=== PATIENT | female | born 1990 | race American Indian/Alaskan Native ===

== ENCOUNTER 2017-10-20 22:56 | Emergency (ER) | payer MEDICAID ==
[2017-10-20 22:56] VITALS: BMI 27.9
--- NOTE | 2017-10-20 23:29 | ED PDOC ---
Arrival/HPI - General Historian: Patient - History of Present Illness Time/Duration: 1 hour Symptom Onset: Sudden Symptom Course: Unchanged Activities at Onset: Rest, Light Context: Home <Stevie Dawkins - Last Filed: 10/21/17 02:02> <Yonny Jimenez - Last Filed: 10/21/17 06:49> - General Chief Complaint: Psychiatric Evaluation Time Seen by Provider: 10/20/17 23:09 - History of Present Illness Narrative History of Present Illness (Text): 10/20/17 23:21 A 27 year old female, whose past medical history includes seizures, is brought into the Emergency department via EMS s/p an argument with her parents at home about 1 hour prior to arrival. She notes that she was throwing glass on the ground at home when arguing. She notes that she did not plan to harm anyone with her actions. Her finger stick was 78 upon arrival to the emergency department. Patient denies drug or alcohol use. She denies fevers, chills, headache, dizziness, chest pain, shortness of breath, dyspnea on exertion, cough , abdominal pain, nausea, vomiting, diarrhea, back pain, neck pain, urinary/ bowel changes, suicidal/ homicidal ideation, auditory/visual hallucination, or any other somatic complaint. (Stevie Dawkins) Past Medical History - Provider Review Nursing Documentation Reviewed: Yes - Infectious Disease Hx of Infectious Diseases: None - Tetanus Immunization Tetanus Immunization: Unknown - Past Medical History Past Medical History: Unable to Obtain - Neurological Hx Neurological Disorder: Yes Hx Seizures: Yes - Psychiatric Hx Depression: No Hx Emotional Abuse: No Hx Physical Abuse: No Hx Substance Use: No - Past Surgical History Past Surgical History: Unable to Obtain - Suicidal Assessment Feels Threatened In Home Enviroment: No <Stevie Dawkins - Last Filed: 10/21/17 02:02> Family/Social History - Physician Review Nursing Documentation Reviewed: Yes Family/Social History: No Known Family HX Smoking Status: Never Smoked Hx Alcohol Use: No Hx Substance Use: No <Stevie Dawkins - Last Filed: 10/21/17 02:02> Allergies/Home Meds <Stevie Dawkins - Last Filed: 10/21/17 02:02> <Yonny Jimenez - Last Filed: 10/21/17 06:49> Allergies/Adverse Reactions: Allergies No Known Allergies Allergy (Verified 10/20/17 23:08) Home Medications: Home Meds Medication Instructions Recorded Confirmed No Known Home Med 10/21/17 10/21/17 Review of Systems - Physician Review All systems were reviewed & negative as marked: Yes - Review of Systems Constitutional: absent: Fevers, Night Sweats Respiratory: absent: SOB, Cough Cardiovascular: absent: Chest Pain, WEBER Gastrointestinal: absent: Abdominal Pain, Stool Changes, Diarrhea, Nausea, Vomiting Genitourinary Female: absent: Urine Output Changes Musculoskeletal: absent: Back Pain, Neck Pain Neurological: absent: Headache, Dizziness Psychiatric: absent: Anxiety, Depression, Suicidal Ideation <Stevie Dawkins Q - Last Filed: 10/21/17 02:02> Physical Exam Vital Signs Reviewed: Yes Temperature: Afebrile Blood Pressure: Normal Pulse: Regular Respiratory Rate: Normal Appearance: Positive for: Well-Appearing, Non-Toxic, Comfortable Pain Distress: None Mental Status: Positive for: Alert and Oriented X 3 Finger Stick Blood Glucose: 78 - Systems Exam Head: Present: Atraumatic, Normocephalic Pupils: Present: PERRL Extroacular Muscles: Present: EOMI Conjunctiva: Present: Normal Mouth: Present: Moist Mucous Membranes Neck: Present: Normal Range of Motion Respiratory/Chest: Present: Clear to Auscultation, Good Air Exchange. No: Respiratory Distress, Accessory Muscle Use Cardiovascular: Present: Regular Rate and Rhythm, Normal S1, S2. No: Murmurs Abdomen: No: Tenderness, Distention, Peritoneal Signs Back: Present: Normal Inspection Upper Extremity: Present: Normal Inspection. No: Cyanosis, Edema Lower Extremity: Present: Normal Inspection. No: Edema Neurological: Present: GCS=15, CN II-XII Intact, Speech Normal, Motor Func Grossly Intact, Gait Normal, Memory Normal Skin: Present: Warm, Dry, Normal Color. No: Rashes Psychiatric: Present: Alert, Oriented x 3, Normal Insight, Normal Concentration <Stevie Dawkins Q - Last Filed: 10/21/17 02:02> Vital Signs Temp Pulse Resp BP Pulse Ox 10/21/17 06:08 80 17 116/82 100 10/21/17 01:15 72 14 110/60 98 10/20/17 23:31 98.2 F 73 18 109/72 99 Medical Decision Making <Stevie Dawkins Q - Last Filed: 10/21/17 02:02> - EKG Interpretation Interpreted by ED Physician: Yes Type: 12 lead EKG <Yonny Jimenez - Last Filed: 10/21/17 06:49> ED Course and Treatment: 10/20/17 23:29 -FS 78 -Physical examination is unremarkable. -Pt. is medically clear and stable for psychiatric evaluation -PES paged 10/21/17 01:46 -PES request labs -Labs/ua/uds/ekg/cxr ordered. -Case endorsed to Dr. Jimenez, he will follow up any pending labs/radiology result and PES consult. (Stevie Dawkins) 10/21/17 02:13: Case endorsed to me by DEQUAN Dawkins. Patient pending PES consultation , labs, radiology reports, reassessment and disposition. 10/21/17 05:56: PES evaluated patient. Pending [facility] screeners. 10/21/17 07:00 Case endorsed to /pending [facility] screeners/reassess/final disposition ( Yonny Jimenez) - Lab Interpretations Lab Results: 10/21/17 02:20 10/21/17 02:20 Lab Results 10/21/17 05:40: Urine Color Light yellow, Urine Appearance Clear, Urine pH 7.0, Ur Specific [place] 1.010, Urine Protein Negative, Urine Glucose (UA) Negative, Urine Ketones Negative, Urine Blood Negative, Urine Nitrate Negative, Urine Bilirubin Negative, Urine Urobilinogen 0.2, Ur Leukocyte Esterase Negative 10/21/17 02:20: WBC 10.9, RBC 4.15, Hgb 12.3, Hct 37.5, MCV 90.4, MCH 29.6, MCHC 32.8, RDW 13.6, Plt Count 305, MPV 9.6, Gran % 55.5, Lymph % (Auto) 36.3 H , [place] % (Auto) 6.4 H, Eos % (Auto) 1.5, Baso % (Auto) 0.3, Gran # 6.07, Lymph # (Auto) 4.0 H, [place] # (Auto) 0.7 H, Eos # (Auto) 0.2, Baso # (Auto) 0.03 10/21/17 02:20: Salicylates < 1 L, Acetaminophen < 10.0 L 10/21/17 02:20: Sodium 142, Potassium 3.7, Chloride 106, Carbon Dioxide 24, Anion Gap 16, BUN 9, Creatinine 1.3 H, Est GFR ( Amer) 60, Est GFR (Non- Af Amer) 50, Random Glucose 87, Calcium 8.9, Total Bilirubin 0.3, AST 23, ALT 13 , Alkaline Phosphatase 69, Total Protein 8.1, Albumin 4.1, Globulin 4.0, Albumin /Globulin Ratio 1.0 L 10/20/17 23:19: POC Glucose (mg/dL) 78 - RAD Interpretation Radiology Orders: 10/21/17 01:46 CHEST PORTABLE [RAD] Stat - EKG Interpretation EKG Interpretation (Text): 10/21/17 02:51 EKG- Sinus bradycardia@ 54 with sinus arrhythmia, no acute changes (Yonny Jimenez) - PA / IT BUSINESS SYSTEMS ANALYST / Resident Statement MD/DO has reviewed & agrees with the documentation as recorded. - Scribe Statement The provider has reviewed the documentation as recorded by the Scribe <Stevie Dawkins - Last Filed: 10/21/17 02:02> <Yonny Jimenez - Last Filed: 10/21/17 06:49> - Scribe Statement Cristiane Yousif Provider Scribe Attestation: All medical record entries made by the Scribe were at my direction and personally dictated by me. I have reviewed the chart and agree that the record accurately reflects my personal performance of the history, physical exam, medical decision making, and the department course for this patient. I have also personally directed, reviewed, and agree with the discharge instructions and disposition. (Stevie Dawkins) Disposition/Present on Arrival - Present on Arrival Any Indicators Present on Arrival: No History of DVT/PE: No History of Uncontrolled Diabetes: No Urinary Catheter: No History of Decub. Ulcer: No History Surgical Site Infection Following: None - Disposition Have Diagnosis and Disposition been Completed?: Yes Disposition Time: 02:05 <Stevie Dawkins - Last Filed: 10/21/17 02:02> - Present on Arrival Any Indicators Present on Arrival: No - Disposition Have Diagnosis and Disposition been Completed?: No Disposition Time: 07:00 <Yonny Jimenez - Last Filed: 10/21/17 06:49> - Disposition Diagnosis: Schizoaffective disorder Patient Problems: Current Active Problems Problem Status Onset Psychiatric care Acute Condition: STABLE Referrals: Юлия Shaffer MD [Primary Care Provider] - Follow up with primary Forms: [employer] ([place])
[2017-10-21 02:40] LABS: BASO # 0.03 K/mm3 (0.0-2.0); BASO % 0.3 % (0.0-3.0); EOS # 0.2 (0.0-0.7); EOS % 1.5 % (1.5-5.0); GRAN # 6.07 (1.4-6.5); GRAN % 55.5 % (50.0-68.0); HEMOGLOBIN 12.3 g/dL (12.0-16.0); LYMPH % 36.3 % (22.0-35.0); MEAN CELL VOLUME 90.4 fl (80.0-105.0); MEAN CORPUSCULAR HEMOGLOBIN 29.6 pg (25.0-35.0); MEAN CORPUSCULAR HGB CONC 32.8 g/dl (31.0-37.0); MEAN PLATELET VOLUME 9.6 fl (7.0-11.0); MONO # 0.7 (0.1-0.6); MONO % 6.4 % (1.0-6.0); RBC 4.15 10^6/uL (3.5-6.1); RED CELL DISTRIBUTION WIDTH 13.6 % (11.5-14.5); WHITE BLOOD COUNT 10.9 10^3/ul (4.5-11.0)
[2017-10-21 03:04] LABS: ACETAMINOPHEN < 10.0 ug/ml (10.0-20.0); ALBUMIN 4.1 g/dL (3.0-4.8); CALCIUM 8.9 mg/dL (8.4-10.5); SALICYLATE < 1 mg/dL (2.0-20.0)
[2017-10-21 05:54] LABS: URINE BILIRUBIN NEGATIVE (NEGATIVE); URINE BLOOD NEGATIVE (NEGATIVE); URINE GLUCOSE (UA) NEGATIVE (NEGATIVE); URINE LEUKOCYTE ESTERASE NEGATIVE Leu/uL (NEGATIVE); URINE PROTEIN NEGATIVE mg/dL (<30 mg/dL); URINE UROBILINOGEN 0.2 E.U./dL (<1 E.U./dL)
[2017-10-21 05:55] LABS: URINE APPEARANCE CLEAR (CLEAR); URINE COLOR LIGHT YELLOW (YELLOW)
[2017-10-21 06:51] LABS: BARBITURATES, UR NEGATIVE (NEGATIVE); BENZODIAZEPINES, UR NEGATIVE (NEGATIVE); OPIATES, UR NEGATIVE (NEGATIVE); PHENCYCLIDINE, UR NEGATIVE (NEGATIVE)
--- NOTE | 2017-10-21 09:55 | RAD ---
Date of service: 10/21/2017 HISTORY: medical clearance COMPARISON: No prior. FINDINGS: LUNGS: No active pulmonary disease. PLEURA: No significant pleural effusion identified, no pneumothorax apparent. CARDIOVASCULAR: Normal. OSSEOUS STRUCTURES: No significant abnormalities. VISUALIZED UPPER ABDOMEN: Normal. OTHER FINDINGS: None. IMPRESSION: No active disease.
--- NOTE | 2017-10-21 10:08 | CON ---
DATE: HISTORY OF PRESENT ILLNESS: Shortly, the patient is 27-year-old -[place] female with history of seizures. The patient was brought because the patient was agitated in her house, broke the glass table and was throwing glasses around the home and she was threatening to harm her mother. The patient was offered voluntary admission, but the patient refused to do so. The patient has history of involuntary commitment in [facility] as per report from [facility]. The patient was discharged from [facility] 2 weeks ago. Since that time, the patient was noncompliant with the medication and was psychotic and not functioning well. The patient was seen and examined today at the morning time. The patient presented to be alert, angry. There is some developmental disability and neurocognitive deficit obviously, poor hygiene as well as dental hygiene. The patient was not willing to have interview, angry and irritable. The patient was more interested to have her food instead of talking to this credit underwriter. The patient is poor, unreliable historian, was not providing history of why she is here and what was the circumstances. The patient said that she does not have history of seizures, but it was documented that the patient has seizure disorder and she is not taking medication. This credit underwriter assumed that the patient is noncompliant with the medication for her seizure disorder either. Labs reviewed. Chemistry reviewed. Urinalysis reviewed. Toxicology is negative for any substances. MENTAL STATUS EXAMINATION: The patient presented to be alert, intense eye contact. Speech was underproductive. Thought process concrete. Thought content, the patient appears to be disorganized. Denied hearing voices, denied seeing things. Denied thoughts of harming herself or others, but as per report, the patient was threatening her mother with the broken glass. Insight and judgment seems to be limited. Impulses are unpredictable. IMPRESSION: Most likely, the patient has schizophrenia spectrum disorder, neurocognitive deficit. Rule out psychosis due to general medical condition. The patient has history of seizure disorder. PLAN: We will start p.r.n. medications such as Ativan. Medical team aware that the patient has seizure disorders. [facility] screening process was initiated. I agree with that. Thank you very much for letting me participate in the care of your patient. Nhung Ellis MD [facility] # [phone]
--- NOTE | 2017-10-21 11:45 | ED PDOC ---
Physical Exam Vital Signs Temp Pulse Resp BP Pulse Ox 10/21/17 09:30 66 17 129/85 98 10/21/17 07:28 98.0 F 68 18 131/89 98 10/21/17 06:08 80 17 116/82 100 10/21/17 01:15 72 14 110/60 98 10/20/17 23:31 98.2 F 73 18 109/72 99 Finger Stick Blood Glucose: 78 Medical Decision Making ED Course and Treatment: Signed out to me at change of shift pending psych eval. Patient evaluated PES, signed out AMA. - Lab Interpretations Lab Results: 10/21/17 02:20 10/21/17 02:20 Lab Results 10/21/17 05:40: Urine Opiates Screen Negative, Urine Methadone Screen Negative, Ur Barbiturates Screen Negative, Ur Phencyclidine Scrn Negative, Ur Amphetamines Screen Negative, U Benzodiazepines Scrn Negative, U Oth Cocaine Metabols Negative, U Cannabinoids Screen Negative 10/21/17 05:40: Urine Color Light yellow, Urine Appearance Clear, Urine pH 7.0, Ur Specific [place] 1.010, Urine Protein Negative, Urine Glucose (UA) Negative, Urine Ketones Negative, Urine Blood Negative, Urine Nitrate Negative, Urine Bilirubin Negative, Urine Urobilinogen 0.2, Ur Leukocyte Esterase Negative 10/21/17 02:20: Alcohol, Quantitative < 10 10/21/17 02:20: WBC 10.9, RBC 4.15, Hgb 12.3, Hct 37.5, MCV 90.4, MCH 29.6, MCHC 32.8, RDW 13.6, Plt Count 305, MPV 9.6, Gran % 55.5, Lymph % (Auto) 36.3 H , [place] % (Auto) 6.4 H, Eos % (Auto) 1.5, Baso % (Auto) 0.3, Gran # 6.07, Lymph # (Auto) 4.0 H, [place] # (Auto) 0.7 H, Eos # (Auto) 0.2, Baso # (Auto) 0.03 10/21/17 02:20: Salicylates < 1 L, Acetaminophen < 10.0 L 10/21/17 02:20: Sodium 142, Potassium 3.7, Chloride 106, Carbon Dioxide 24, Anion Gap 16, BUN 9, Creatinine 1.3 H, Est GFR ( Amer) 60, Est GFR (Non- Af Amer) 50, Random Glucose 87, Calcium 8.9, Total Bilirubin 0.3, AST 23, ALT 13 , Alkaline Phosphatase 69, Total Protein 8.1, Albumin 4.1, Globulin 4.0, Albumin /Globulin Ratio 1.0 L 10/20/17 23:19: POC Glucose (mg/dL) 78 - RAD Interpretation Radiology Orders: 10/21/17 01:46 CHEST PORTABLE [RAD] Stat - Medication Orders Current Medication Orders: Lorazepam (Ativan) 2 mg IM Q6 PRN; Protocol PRN Reason: agitation/seizures Disposition/Present on Arrival - Present on Arrival Any Indicators Present on Arrival: No History of DVT/PE: No History of Uncontrolled Diabetes: No Urinary Catheter: No History of Decub. Ulcer: No History Surgical Site Infection Following: None - Disposition Have Diagnosis and Disposition been Completed?: Yes Diagnosis: Polysubstance abuse Disposition: AGAINST MEDICAL ADVICE Disposition Time: 11:45 Patient Plan: Discharge Patient Problems: Current Active Problems Problem Status Onset Schizoaffective disorder Acute Condition: STABLE Discharge Instructions (ExitCare): Polysubstance Abuse (DC) Referrals: Юлия Shaffer MD [Primary Care Provider] - Follow up with primary Forms: [employer] ([place])
[2017-10-21 11:54] VITALS: BP 130/82; PULSE 66; RESP 18; TEMP 98.4; O2SAT 98
--- NOTE | 2017-10-21 18:41 | CARD ---
APPROVED REPORT Date of service: 10/21/2017 EKG Measurement Heart [id number] <Conclusion> Sinus bradycardia with sinus arrhythmia Otherwise normal ECG
== END 2017-10-21 11:54 | disposition left against medical advice (07) ==
LOC: ED 22:56
DX: F25.9 Schizoaffective disorder, unspecified (principal); F19.10 Other psychoactive substance abuse, uncomplicated